=== PATIENT | female | born 1960 | race Caucasian/White ===

== ENCOUNTER 2017-02-27 11:15 | Emergency (ER) | payer OTHER ==
[~2017-02-27] VITALS: Ht 160 cm; Wt 89.8 kg
[~2017-02-27 11:15] MED LIST: MOBIC7.5 M1 PO; PRINIVIL5 MG PO; ULTRAM50 MG PO
== END 2017-02-27 12:17 | disposition short-term general hospital (02) ==
LOC: ER 11:15
DX: G43.909 Migraine, unspecified, not intractable, without status migrainosus (principal); M54.5 Low back pain; G89.29 Other chronic pain; Z79.899 Other long term (current) drug therapy; Z79.891 Long term (current) use of opiate analgesic
CPT/HCPCS: J1885; J2175; J2405